=== PATIENT | male | born 1975 | race Two or more races ===

== ENCOUNTER 2018-06-19 09:00 | Outpatient (CLI) | payer OTHER | END 2018-06-19 14:20 | disposition home or self-care (01) | LOC: SONOGRAMA 09:00 | DX: R10.84 Generalized abdominal pain (principal) ==

== ENCOUNTER → 2018-06-27 | Emergency (ER) | payer OTHER ==
[~2018-06-27] VITALS: Ht 180.3 cm; Wt 88.5 kg
[~2018-06-27] MED LIST: HYDROCHLOROTH12.5 M1; KETO10TA2 PO; METFORMIN HCL500 MG
== END | disposition home or self-care (01) ==
LOC: ER 21:38
DX: S20.212A Contusion of left front wall of thorax, initial encounter (principal); S20.211A Contusion of right front wall of thorax, initial encounter; V49.9XXA Car occupant (driver) (passenger) injured in unspecified traffic accident, initial encounter; Y93.89 Activity, other specified; Y92.488 Other paved roadways as the place of occurrence of the external cause; Y99.8 Other external cause status

== ENCOUNTER 2022-05-25 11:02 | Outpatient (CLI) | payer OTHER | END 2022-05-25 11:06 | disposition home or self-care (01) | LOC: NUCLEAR 11:02 | PROVIDERS: ATTEND Internal Medicine | DX: I70.202 Unspecified atherosclerosis of native arteries of extremities, left leg (principal); I87.2 Venous insufficiency (chronic) (peripheral) ==

== ENCOUNTER → 2022-05-29 | Outpatient (CLI) | payer OTHER | END | disposition home or self-care (01) | LOC: NUCLEAR 11:00 | PROVIDERS: ATTEND Internal Medicine | DX: I82.493 Acute embolism and thrombosis of other specified deep vein of lower extremity, bilateral (principal) ==